=== PATIENT | female | born 1985 | race Caucasian/White ===

== ENCOUNTER 2017-03-14 15:24 | Emergency (ER) | payer BC, OTHER ==
[2017-03-14] MEDS ORDERED: RX INFO: IV CONTRAST WAS GIVEN 1 EACH MISC MISCELLANE PRN (15:38)
[2017-03-14] MEDS ORDERED: SODIUM CHLORIDE 0.9% 1,000 ML IV STA (15:38)
--- NOTE | 2017-03-14 15:45 | ED ---
General Adult HPI - General Chief complaint: Neuro Symptoms/Deficit Stated complaint: TIA Time Seen by Provider: 03/14/17 15:25 Source: patient, EMS, RN notes reviewed Mode of arrival: EMS Limitations: no limitations - History of Present Illness Initial comments: Patient is a pleasant 31-year-old female presenting to the emergency department with difficulty with focusing with her left eye. Patient states she removed from her computer to talk with a coworker around 1:15. Patient has had problems focusing with her left eye since that time. Patient has now developed a moderate headache. Patient did not have a headache earlier. Patient does have a history of similar headaches however not recently. Patient has not noticed any weakness of her arm or leg however EMS did have concern for left- sided weakness. - Related Data Previous Rx's Medication Instructions Recorded Meclizine [Antivert] 12.5 mg PO Q8HR PRN #10 tab 03/28/15 Allergies Allergy/AdvReac Type Severity Reaction Status Date / Time corn Allergy Unknown Verified 03/14/17 15:56 Milk Containing Products Allergy Unknown Verified 03/14/17 15:56 [Dairy] Review of Systems ROS Statement: Those systems with pertinent positive or pertinent negative responses have been documented in the HPI. ROS Other: All systems not noted in ROS Statement are negative. Constitutional: Denies: fever Eyes: Reports: vision change. Denies: eye pain ENT: Denies: ear pain Respiratory: Denies: cough Cardiovascular: Denies: chest pain Endocrine: Denies: fatigue Gastrointestinal: Denies: abdominal pain Genitourinary: Denies: dysuria Musculoskeletal: Denies: back pain Skin: Denies: rash Neurological: Reports: as per HPI Past Medical History Past Medical History: No Reported History Additional Past Medical History / Comment(s): vertigo History of Any Multi-Drug Resistant Organisms: None Reported Past Surgical History: Section, Tonsillectomy, Tubal Ligation Past Psychological History: No Psychological Hx Reported Smoking Status: Never smoker Past Alcohol Use History: None Reported Past Drug Use History: None Reported General Exam Limitations: no limitations General appearance: alert, in no apparent distress Head exam: Present: atraumatic Eye exam: Present: normal appearance, PERRL, EOMI. Absent: nystagmus Expanded Eyelids: Normal Inspection: Bilateral Pupils: Regular, Round: Bilateral Sclera/Conjunctival: Normal Inspection: Bilateral Posterior chamber: Normal Inspection: Bilateral ENT exam: Present: normal oropharynx Neck exam: Present: normal inspection Respiratory exam: Present: normal lung sounds bilaterally Cardiovascular Exam: Present: regular rate, normal rhythm GI/Abdominal exam: Present: soft. Absent: tenderness Extremities exam: Present: normal inspection Neurological exam: Present: alert, oriented X3, CN II-XII intact Expanded Patient oriented to: Present: person, place, time Speech: Present: fluid speech Cranial nerves: EOM's Intact: Normal, Facial Sensation: Normal Sensory exam: Upper Extremity Light Touch: Abnormal Left (Diminished on the left ), Lower Extremity Light Touch: Abnormal Left (Impression left) Motor strength exam: RUE: 5, LUE: 4, RLE: 5, LLE: 4 Eye Response: (4) open spontaneously Motor Response: (6) obeys commands Verbal Response: (5) oriented Psychiatric exam: Present: normal affect, normal mood Skin exam: Present: normal color Course Vital Signs 03/14/17 03/14/17 03/14/17 15:27 15:30 15:45 Temperature 98.4 F Pulse Rate 90 92 84 Respiratory 18 18 18 Rate Blood Pressure 159/98 159/98 163/87 O2 Sat by Pulse 100 98 98 Oximetry - Reevaluation(s) Reevaluation #1: 03/14/17 15:59 Patient reexamined and updated. CT reviewed. Neuro interventionalist does recommend TPA. Patient is fully updated on rest and benefits of TPA. Patient is specifically updated on real risk of or permanent disability resulting from TPA. Exclusion criteria reviewed. Patient is a candidate for TPA and patient doesn't want TPA done. TPA has been ordered. Neural interventional list would like patient transferred to [facility]. Medical Decision Making - Lab Data Result diagrams: 03/14/17 15:40 Lab Results 03/14/17 03/14/17 Range/Units 15:38 15:40 WBC 9.4 (3.8-10.6) k/uL RBC 4.59 (3.80-5.40) m/uL Hgb 12.6 (11.4-16.0) gm/dL Hct 38.4 (34.0-46.0) % MCV 83.7 (80.0-100.0) fL MCH 27.4 (25.0-35.0) pg MCHC 32.8 (31.0-37.0) g/dL RDW 12.2 (11.5-15.5) % Plt Count 344 (150-450) k/uL Neutrophils % 62 % Lymphocytes % 27 % Monocytes % 6 % Eosinophils % 3 % Basophils % 1 % Neutrophils # 5.8 (1.3-7.7) k/uL Lymphocytes # 2.6 (1.0-4.8) k/uL Monocytes # 0.5 (0-1.0) k/uL Eosinophils # 0.3 (0-0.7) k/uL Basophils # 0.1 (0-0.2) k/uL POC Glucose (mg/dL) 88 (75-99) mg/dL POC Glu Office Clinician ID Dejah Recinos - Radiology Data Radiology results: image reviewed (Computed tomography scan of brain shows no acute intercranial process.) Critical Care Time Critical Care Time: Yes Total Critical Care Time: 31 Disposition Clinical Impression: Cerebrovascular accident Disposition: OTHER INSTITUTION NOT DEFINED Referrals: Lary Rogers MD [Primary Care Provider] - 1-2 days Time of Disposition: 16:02 - Out of Hospital Transfer - Req. Specs Out of Hospital Transfer - Requested Specifics: Other Emergency Center
[2017-03-14 15:50] LABS: Glucose,Whole Blood 88 mg/dL (75-99)
[2017-03-14 15:53] LABS: Basophils # (A) 0.1 k/uL (0-0.2); Basophils % (A) 1 %; Eosinophils # (A) 0.3 k/uL (0-0.7); Eosinophils % (A) 3 %; HCT 38.4 % (34.0-46.0); HGB 12.6 gm/dL (11.4-16.0); Lymphocytes # (A) 2.6 k/uL (1.0-4.8); Lymphocytes % (A) 27 %; MCH 27.4 pg (25.0-35.0); MCHC 32.8 g/dL (31.0-37.0); MCV 83.7 fL (80.0-100.0); Mean Platelet Volume 7.1; Monocytes # (A) 0.5 k/uL (0-1.0); Monocytes % (A) 6 %; Neutrophils # (A) 5.8 k/uL (1.3-7.7); Neutrophils % (A) 62 %; Platelet Count 344 k/uL (150-450); RBC 4.59 m/uL (3.80-5.40); RDW 12.2 % (11.5-15.5); WBC 9.4 k/uL (3.8-10.6)
--- NOTE | 2017-03-14 15:53 | CT ---
EXAMINATION TYPE: CT brain wo con for TPA DATE OF EXAM: 03/14/2017 COMPARISON: NONE HISTORY: Patient complains of loss of left eye vision. CT DLP: 771.[address] of the brain was performed. The ventricles, basal cisterns and sulci overlying the cerebral convexities demonstrate a normal appe arance. There is no evidence for intracranial hemorrhage or sulcal effacement. No mass effects are seen. Osseous calvarium is intact. Mucus retention cyst left maxillary sinus. If symptoms persist consider MRI as clinically warranted. IMPRESSION: 1. No acute intracranial process is seen at this time.
[2017-03-14] MEDS ORDERED: ALTEPLASE 81 MG in EMPTY BAG 1 BAG IV STA (15:54)
[2017-03-14] MEDS ORDERED: ALTEPLASE BOLUS 9 MG in EMPTY SYRINGE 1 SYR IV STA (15:56)
--- NOTE | 2017-03-14 16:04 | XR ---
EXAMINATION TYPE: XR chest 1V portable DATE OF EXAM: 03/14/2017 COMPARISON: 08/24/2014 HISTORY: Chest pain TECHNIQUE: Single frontal view of the chest is obtained. FINDINGS: There is no focal air space opacity, pleural effusion, or pneumothorax seen. The cardiac silhouette size is within normal limits. The osseous structures are intact. IMPRESSION: 1. No acute process.
[2017-03-14 16:12] LABS: ALT 31 U/L (9-52); AST 18 U/L (14-36); Albumin 3.8 g/dL (3.5-5.0); Alkaline Phosphatase 69 U/L (38-126); Anion Gap 10 mmol/L; Blood Urea Nitrogen 10 mg/dL (7-17); Calcium 8.6 mg/dL (8.4-10.2); Carbon Dioxide 24 mmol/L (22-30); Chloride 104 mmol/L (98-107); Glucose 91 mg/dL (74-99); Potassium 4.1 mmol/L (3.5-5.1); Sodium 138 mmol/L (137-145); Total Bilirubin 0.2 mg/dL (0.2-1.3); Total Protein 6.8 g/dL (6.3-8.2)
[2017-03-14 16:14] LABS: Partial Thromboplastin Time 18.8 sec (22.0-30.0)
[2017-03-14 16:17] LABS: Creatine Kinase 62 U/L (30-135)
[2017-03-14 16:27] VITALS: RESP 20
[2017-03-14 16:29] LABS: Creatine Kinase MB 0.3 ng/mL (0.0-2.4); Troponin I <0.012 ng/mL (0.000-0.034)
--- NOTE | 2017-03-14 17:18 | CT ---
EXAMINATION TYPE: CT angio head neck DATE OF EXAM: 03/14/2017 HISTORY: Patient complains of loss of vision left eye. COMPARISON: NONE CT DLP: 548.4 mGycm. Automated Exposure Control for Dose Reduction was Utilized. TECHNIQUE: CTA scan of the neck is performed with IV Contrast, patient injected with 60 mL of Omnipa que 350, axial images are obtained, coronal and sagittal reformatted images are reviewed. Three-D rec onstructed images are created on an independent workstation and reviewed. FINDINGS: There is normal branching pattern of the great vessels on the aortic arch. There is bilateral vertebr al artery flow. There is arterial flow in the common internal and external carotid arteries bilateral ly. There is arterial flow in the vertebrobasilar artery system. There is arterial flow in the anterior m iddle and posterior cerebral arteries. I see no evidence of aneurysm or neovascularity. There is no m ass effect. There is no sign of stenosis. There is no sign of carotid dissection. There is normal contrast opacification of the venous sinuses.: CONCLUSION: Normal CT angiogram of the brain. Normal CT angiogram of the neck.
[2017-03-14 17:50] VITALS: BP 145/76; PULSE 88; TEMP 99
== END 2017-03-14 17:48 | disposition other institution (70) ==
LOC: EC 15:24
DX: I63.9 Cerebral infarction, unspecified (principal); R40.2142 Coma scale, eyes open, spontaneous, at arrival to emergency department; R40.2362 Coma scale, best motor response, obeys commands, at arrival to emergency department; R40.2252 Coma scale, best verbal response, oriented, at arrival to emergency department; Z91.011 Allergy to milk products; Z91.018 Allergy to other foods
CPT/HCPCS: 99291 ×2; 96365 ×2; 96366 ×2; 36415; 93005; 80053; 82550; 82553; 84484; 85025; 85610; 85730; 71010; 70496; 70450; 70498; J2997; Q9967

== ENCOUNTER → 2019-12-10 | Outpatient (CLI) | payer BC, OTHER ==
[2019-12-10 14:58] VITALS: BP 114/78; PULSE 70; RESP 16; TEMP 98.7; BMI 39.2
--- NOTE | 2019-12-10 20:22 | PN ---
PROGRESS NOTE DATE OF SERVICE: 12/10/2019. CHIEF COMPLAINT: GERD. INTERVAL HISTORY: The patient returns for re-evaluation. She is doing well with her weight loss. She has maintained her weight at 236. Preoperatively it was 327. Complaining of loose skin with skin excoriation. She has not been exercising recently, although she recently became unemployed and is planning to increase her exercise amount. The patient has dysphagia to bread but otherwise doing well. She takes antacids on an as- needed basis. Good liquid intake. Similar volume of oral intake to early postoperative period. PHYSICAL EXAMINATION: Abdomen is soft, nondistended, nontender. Mild skin irritation. PLAN: Check 2-year labs at this time. Continue antacid therapy. Increase exercise amount. Will have patient seen by Dietary today. Will refer to Plastics to discuss possible panniculectomy. Plan followup in 6 months. MMODL / IJN: [id number] /
== END | disposition home or self-care (01) ==
LOC: BARWHC3 14:27
PROVIDERS: ATTEND Surgery
DX: K21.9 Gastro-esophageal reflux disease without esophagitis (principal); Z71.3 Dietary counseling and surveillance
CPT/HCPCS: 97803; 99201

== ENCOUNTER → 2020-10-13 | Outpatient (CLI) | payer BC, OTHER ==
[2020-10-13 13:12] VITALS: BP 130/86; PULSE 90; RESP 16; TEMP 98.2; BMI 34.2
--- NOTE | 2020-10-13 17:28 | P.BASOAP ---
Subjective Progress Note Date: 10/13/20 Principal diagnosis: Morbid obesity Patient returns for evaluation. Last seen in November of last year. She has lost an additional 30 pounds since her last visit. She has lost approximately 120 pounds overall. Complains of a rash at times beneath her pannus. She has been exercising more. She is hoping to get down to a weight of 175 before pursuing abdominoplasty. Takes antiacids in the form of Pepcid rarely. No nausea or vomiting. She is due for annual blood work. Objective - Vital Signs Vital signs: Vital Signs Temp 98.2 F 10/13/20 13:10 Pulse 90 10/13/20 13:10 Resp 16 10/13/20 13:10 BP 130/86 10/13/20 13:10 Pulse Ox Intake & Output 10/12/20 10/13/20 10/13/20 18:59 06:59 18:59 Weight 93.44 kg - Exam Abdomen: Soft, nontender, nondistended Assessment/Plan (1) Morbid obesity Narrative/Plan: Patient doing well at this time. Continue dietary and exercise regimen. Check annual labs. Follow-up 6-12 months. Plan: Date: 10/13/20 Initial Weight: 148.325 kg Initial BMI: 54.3 Current Weight: 93.44 kg Current BMI: 34.2 Type of Surgery: Total Volume in Band: Previous Volume: Volume Removed: Volume Added: Band Size:
== END ==
LOC: BARWHC3 12:51
PROVIDERS: ATTEND Surgery
DX: E66.01 Morbid (severe) obesity due to excess calories (principal); Z68.34 Body mass index [BMI] 34.0-34.9, adult; Z91.011 Allergy to milk products; Z91.018 Allergy to other foods
CPT/HCPCS: 99211

== ENCOUNTER → 2020-11-25 | Outpatient (CLI) | payer OTHER ==
[2020-11-26 00:06] LABS: HCT 38.5 % (37.2-46.3); HGB 12.3 g/dL (12.0-15.0); MCH 28.4 pg (27.0-32.0); MCHC 31.9 g/dL (32.0-37.0); MCV 88.9 fL (80.0-97.0); Mean Platelet Volume 11.1 fL (9.5-12.2); Platelet Count 327 X 10*3/uL (140-440); RBC 4.33 X 10*6/uL (4.10-5.20); RDW 12.5 % (11.5-14.5); WBC 5.17 X 10*3/uL (4.50-10.00)
[2020-11-26 06:16] LABS: Folate, Serum 9.9 ng/mL
[2020-11-26 06:30] LABS: Albumin 4.3 g/dL (3.80-4.90); Albumin/Globulin Ratio 1.87 (1.60-3.17); Anion Gap 6.7 mmol/L (4.00-12.00); BUN/Creat Ratio 11.43 Ratio (12.00-20.00); Calcium 9.1 mg/dL (8.7-10.3); Carbon Dioxide 27.3 mmol/L (21.6-31.8); Globulin 2.3 g/dL (1.6-3.3); Potassium 3.9 mmol/L (3.5-5.5); Total Bilirubin 0.5 mg/dL (0.3-1.2); Total Protein 6.6 g/dL (6.2-8.2)
== END | disposition home or self-care (01) ==
LOC: LABWHC1 15:45
PROVIDERS: ATTEND Surgery
DX: E66.01 Morbid (severe) obesity due to excess calories (principal); K90.89 Other intestinal malabsorption; E55.9 Vitamin D deficiency, unspecified; Z98.84 Bariatric surgery status
CPT/HCPCS: 36415; 80053; 82306; 82607; 82746; 83540; 84425; 85027

== ENCOUNTER 2022-05-10 13:12 | Observation (INO) | payer OTHER ==
[2022-05-10] MEDS ORDERED: SODIUM CHLORIDE 0.9% 500 ML 500 ML IV STA (13:33)
[2022-05-10] MEDS ORDERED: dexAMETHasone 2 MG TAB PO STA (13:54)
[2022-05-10 13:56] LABS: Glucose,Whole Blood 92 mg/dL (70-110)
--- NOTE | 2022-05-10 13:59 | CT ---
EXAMINATION TYPE: CT brain wo con for TPA DATE OF EXAM: 05/10/2022 COMPARISON: 03/14/2017 HISTORY: Neuro deficit, acute, stroke suspected CT DLP: 1103.[address] of the brain was performed. The ventricles, basal cisterns and sulci overlying the cerebral convexities demonstrate a normal appe arance. Abnormal attenuation within the bilateral cerebellum medially in a PICA distribution. Correlate clini pennie. There is no evidence for intracranial hemorrhage or sulcal effacement. No mass effects are seen. Osseous calvarium is intact. If symptoms persist consider MRI as clinically warranted. IMPRESSION: 1. Abnormal attenuation within the bilateral cerebellum medially in a PICA distribution. Correlate c linically.
--- NOTE | 2022-05-10 13:59 | ED ---
General Adult HPI - General Chief complaint: Headache Stated complaint: rt sided vision issue, dizziness Source: patient, RN notes reviewed, old records reviewed Mode of arrival: ambulatory Limitations: no limitations - History of Present Illness Initial comments: This is a 37 year-old female who comes in stating she woke up this morning at 5:15 with a headache behind her right eye. Patient states went to work he started working and then she started having some wavy vision in the temporal region of the right eye. Patient states that continues and the headache continues well per patient denies any numbness weakness. Patient denies any speech disturbance. Patient denies any thought disturbance. Patient states this happened to her 2 years ago and they told her she probably had a TIA. Patient states her symptoms are more mild than it was 2 years ago because back then she had some numbness to the right side of her body. Patient states last night she did have a fever of 102. 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 - Related Data Home Medications Medication Instructions Recorded Confirmed Calcium Citrate 1,200 mg PO DAILY 12/10/19 10/16/20 Pnv No.95/Ferrous Fum/Folic AC 1 tab PO DAILY 12/10/19 10/16/20 [ Multivitamin Tablet] Allergies Allergy/AdvReac Type Severity Reaction Status Date / Time corn Allergy Unknown Verified 10/16/20 13:10 Milk Containing Products Allergy Unknown Verified 10/16/20 13:10 [Dairy] Review of Systems ROS Statement: Those systems with pertinent positive or pertinent negative responses have been documented in the HPI. ROS Other: All systems not noted in ROS Statement are negative. Past Medical History Past Medical History: CVA/TIA Additional Past Medical History / Comment(s): vertigo History of Any Multi-Drug Resistant Organisms: None Reported Past Surgical History: Bariatric Surgery, Section, Tonsillectomy, Tubal Ligation Additional Past Surgical History / Comment(s): sleeve gastrectomy 2018 [facility] Past Anesthesia/Blood Transfusion Reactions: No Reported Reaction Past Psychological History: No Psychological Hx Reported Smoking Status: Never smoker Past Alcohol Use History: None Reported Past Drug Use History: None Reported General Exam - General Exam Comments Initial Comments: GENERAL: Patient is well-developed and well-nourished. Patient is nontoxic and well- hydrated and is in no acute distress. ENT: Neck is soft and supple. No significant lymphadenopathy is noted. Oropharynx is clear. Moist mucous membranes. Neck has full range of motion without eliciting any pain. EYES: The sclera were anicteric and conjunctiva were pink and moist. Extraocular movements were intact and pupils were equal round and reactive to light. Eyelids were unremarkable. PULMONARY: Unlabored respirations. Good breath sounds bilaterally. No audible rales rhonchi or wheezing was noted. CARDIOVASCULAR: There is a regular rate and rhythm without any murmurs gallops or rubs. ABDOMEN: Soft and nontender with normal bowel sounds. SKIN: Skin is clear with no lesions or rashes and otherwise unremarkable. NEUROLOGIC: Patient is alert and oriented x3. Cranial nerves II through XII are grossly intact. Motor and sensory are also intact. Normal speech, volume and content. Symmetrical smile. Cerebellar exam grossly intact. Patient has visual field loss in the temporal region of the right eye and equates to an NIH of 1 MUSCULOSKELETAL: Normal extremities with adequate strength and full range of motion. LYMPHATICS: No significant lymphadenopathy is noted PSYCHIATRIC: Normal psychiatric evaluation. Limitations: no limitations Course Vital Signs 05/10/22 13:15 Temperature 98 F Pulse Rate 83 Respiratory 16 Rate Blood Pressure 115/74 O2 Sat by Pulse 100 Oximetry Medical Decision Making - Medical Decision Making I spoke with Dr. temple and he agreed that the patient did not need alteplase with an NIH of 1. EKG was interpreted by me that shows a sinus rhythm at 77 bpm MO interval is on a 73 QRS is 90 QT interval 360 QTC is 399. Patient's EKG shows no ST segment elevation or depression. CT of the brain was interpreted by me showed no acute abnormality. However radiology thought it might be some abnormal attenuation Dr. Benjamin was unimpressed but wanted an MRI. CT angiogram showed a possible cut off of the left M1 MCA segments but was not seen on the rapid angiography imaging. After the computed tomography scan and CTA were done I spoke with again and he wanted the patient to be admitted and have the neurologist see him and have an MRI done. I spoke with Dr. Bai and he agreed to admit the patient admitted the patient wrote admitting orders. I spoke to Dr. Paris the neurologist and he is aware of the patient. I went back into the room to reevaluate the patient she stated the vision was getting improve the headache was a little worse however. - Lab Data Result diagrams: 05/10/22 13:55 05/10/22 13:55 Lab Results 05/10/22 05/10/22 05/10/22 Range/Units 13:38 13:55 13:55 WBC 5.9 (3.8-10.6) k/uL RBC 4.23 (3.80-5.40) m/uL Hgb 12.0 (11.4-16.0) gm/dL Hct 35.5 (34.0-46.0) % MCV 84.0 (80.0-100.0) fL MCH 28.4 (25.0-35.0) pg MCHC 33.8 (31.0-37.0) g/dL RDW 12.2 (11.5-15.5) % Plt Count 293 (150-450) k/uL MPV 8.8 Neutrophils % 57 % Lymphocytes % 31 % Monocytes % 7 % Eosinophils % 2 % Basophils % 1 % Neutrophils # 3.4 (1.3-7.7) k/uL Lymphocytes # 1.8 (1.0-4.8) k/uL Monocytes # 0.4 (0-1.0) k/uL Eosinophils # 0.1 (0-0.7) k/uL Basophils # 0.1 (0-0.2) k/uL PT 10.1 (9.0-12.0) sec INR 0.9 (<1.2) APTT 20.5 L (22.0-30.0) sec Sodium (137-145) mmol/L Potassium (3.5-5.1) mmol/L Chloride (98-107) mmol/L Carbon Dioxide (22-30) mmol/L Anion Gap mmol/L BUN (7-17) mg/dL Creatinine (0.52-1.04) mg/dL Est GFR (CKD-EPI)AfAm (>60 ml/min/1.73 sqM) Est GFR (CKD-EPI)NonAf (>60 ml/min/1.73 sqM) Glucose (74-99) mg/dL POC Glucose (mg/dL) 92 (70-110) mg/dL POC Glu [employer] ID Tyrel, Asmara Calcium (8.4-10.2) mg/dL Total Bilirubin (0.2-1.3) mg/dL AST (14-36) U/L ALT (4-34) U/L Alkaline Phosphatase (38-126) U/L Troponin I (0.000-0.034) ng/mL Total Protein (6.3-8.2) g/dL Albumin (3.5-5.0) g/dL Influenza Type A (PCR) (Not Detectd) Influenza Type B (PCR) (Not Detectd) RSV (PCR) (Not Detectd) SARS-CoV-2 (PCR) (Not Detectd) 05/10/22 05/10/22 05/10/22 Range/Units 13:55 13:55 13:58 WBC (3.8-10.6) k/uL RBC (3.80-5.40) m/uL Hgb (11.4-16.0) gm/dL Hct (34.0-46.0) % MCV (80.0-100.0) fL MCH (25.0-35.0) pg MCHC (31.0-37.0) g/dL RDW (11.5-15.5) % Plt Count (150-450) k/uL MPV Neutrophils % % Lymphocytes % % Monocytes % % Eosinophils % % Basophils % % Neutrophils # (1.3-7.7) k/uL Lymphocytes # (1.0-4.8) k/uL Monocytes # (0-1.0) k/uL Eosinophils # (0-0.7) k/uL Basophils # (0-0.2) k/uL PT (9.0-12.0) sec INR (<1.2) APTT (22.0-30.0) sec Sodium 138 (137-145) mmol/L Potassium 3.8 (3.5-5.1) mmol/L Chloride 105 (98-107) mmol/L Carbon Dioxide 27 (22-30) mmol/L Anion Gap 6 mmol/L BUN 10 (7-17) mg/dL Creatinine 0.65 (0.52-1.04) mg/dL Est GFR (CKD-EPI)AfAm >90 (>60 ml/min/1.73 sqM) Est GFR (CKD-EPI)NonAf >90 (>60 ml/min/1.73 sqM) Glucose 91 (74-99) mg/dL POC Glucose (mg/dL) (70-110) mg/dL POC Glu [employer] ID Calcium 8.8 (8.4-10.2) mg/dL Total Bilirubin 0.4 (0.2-1.3) mg/dL AST 29 (14-36) U/L ALT 26 (4-34) U/L Alkaline Phosphatase 51 (38-126) U/L Troponin I <0.012 (0.000-0.034) ng/mL Total Protein 7.2 (6.3-8.2) g/dL Albumin 4.2 (3.5-5.0) g/dL Influenza Type A (PCR) Not Detected (Not Detectd) Influenza Type B (PCR) Not Detected (Not Detectd) RSV (PCR) Not Detected (Not Detectd) SARS-CoV-2 (PCR) Not Detected (Not Detectd) Disposition Clinical Impression: Headache, Visual disturbance Disposition: ADMITTED IP TO THIS HOSP Time of Disposition: 15:30
[2022-05-10 14:21] LABS: ALT 26 U/L (4-34); AST 29 U/L (14-36); African American GFR (CKD) >90 (>60 ml/min/1.73 sqM); Albumin 4.2 g/dL (3.5-5.0); Alkaline Phosphatase 51 U/L (38-126); Anion Gap 6 mmol/L; Blood Urea Nitrogen 10 mg/dL (7-17); Calcium 8.8 mg/dL (8.4-10.2); Carbon Dioxide 27 mmol/L (22-30); Chloride 105 mmol/L (98-107); Glucose 91 mg/dL (74-99); Non-African American GFR(CKD) >90 (>60 ml/min/1.73 sqM); Potassium 3.8 mmol/L (3.5-5.1); Sodium 138 mmol/L (137-145); Total Bilirubin 0.4 mg/dL (0.2-1.3); Total Protein 7.2 g/dL (6.3-8.2)
--- NOTE | 2022-05-10 14:28 | CT ---
EXAMINATION TYPE: CT angio head neck DATE OF EXAM: 05/10/2022 COMPARISON: There is poor visualization of the cerebellar vascular anatomy. HISTORY: Neuro deficit, acute, stroke suspected CT DLP: 607 mGycm CONTRAST: Performed with IV Contrast, patient injected with 65 mL of Isovue 370. Combination Contrast CTA cervical carotids and [place] CTA cervical carotids with 3-D recons truction Contrast CTA of the cervical carotids was performed 3-D reconstruction imaging obtained at a separate workstation. Right carotid system: Mild plaque is seen of the right common carotid artery. There is mild plaque a lso noted at the carotid bulb and proximal ICA. No significant diameter reduction. ECA is patent. Right vertebral artery appears unremarkable. Left carotid system: Mild plaque is seen of the left common carotid artery. There is mild plaque als o noted at the carotid bulb and proximal ICA. No significant diameter reduction. ECA is patent. Lef t vertebral artery appears unremarkable. IMPRESSION: 1. No significant diameter reduction to account for the patient's symptoms. CTA [place] with 3-D reconstruction Contrast CTA of the [place] was performed 3-D reconstruction imaging obtained at a separate workstation. Vertebrobasilar system as well as intracranial portions of the internal carotid arteries Are patent. On image 10 sequence 410 there is cut off of the left M1 MCA segment which could reflect vascular occ lusion.] On rapid angiography Imaging this does not persist however there is a decrease in vascular d ensity left hemisphere. There is poor visualization of the cerebellar vascular anatomy. I do not see evidence for sizable aneurysm or vascular malformation. Please note MRI provides greater sensitivity and specificity. Visualized brain appears grossly unremarkable. IMPRESSION: 1. On image 10 sequence 410 there is cut off of the left M1 MCA segment which could reflect vascular occlusion.] On rapid angiography Imaging this does not persist however there is a decrease in vascula r density left hemisphere. There is poor visualization of the cerebellar vascular anatomy. NASCET criteria was used in interpretation of this exam?
[2022-05-10 14:32] LABS: Basophils # (A) 0.1 k/uL (0-0.2); Basophils % (A) 1 %; Eosinophils # (A) 0.1 k/uL (0-0.7); Eosinophils % (A) 2 %; HCT 35.5 % (34.0-46.0); Lymphocytes # (A) 1.8 k/uL (1.0-4.8); Lymphocytes % (A) 31 %; MCH 28.4 pg (25.0-35.0); MCHC 33.8 g/dL (31.0-37.0); Mean Platelet Volume 8.8; Monocytes # (A) 0.4 k/uL (0-1.0); Monocytes % (A) 7 %; Neutrophils # (A) 3.4 k/uL (1.3-7.7); Neutrophils % (A) 57 %; Platelet Count 293 k/uL (150-450); RBC 4.23 m/uL (3.80-5.40); RDW 12.2 % (11.5-15.5); WBC 5.9 k/uL (3.8-10.6)
[2022-05-10 14:33] LABS: INR 0.9 (<1.2); Prothrombin Time 10.1 sec (9.0-12.0)
--- NOTE | 2022-05-10 14:53 | XR ---
EXAMINATION TYPE: XR chest 2V DATE OF EXAM: 05/10/2022 COMPARISON: NONE TECHNIQUE: PA and lateral views submitted. HISTORY: 03/14/2017 FINDINGS: The lungs are clear and there is no pneumothorax, pleural effusion, or focal pneumonia. Heart size normal. No overt failure. Nipple shadow overlying left lower lobe laterally. Hyperinflation suggestin g asthma or COPD. IMPRESSION: 1. No acute process.
[2022-05-10 14:55] LABS: Partial Thromboplastin Time 20.5 sec (22.0-30.0)
[2022-05-10] MEDS ORDERED: ASPIRIN 325 MG TAB PO STA (15:31)
--- NOTE | 2022-05-10 17:37 | P.CNNES ---
History of Present Illness Consult date: 05/10/22 Requesting physician: Clint Mcintyre Reason for Consult: headache, visual disturbance History of Present Illness: This is a 37-year-old woman with history of migraine, history of suspected stroke s/p IV tpa (6years ago and had speech difficulty and numbness) who presented emergency department because a headache and visual disturbance. 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 She stated that she's been having headache prior to that today and then the she noticed the stabbing pain in the right eye that was shooting the behind later today and she felt was an 8-10. Then close to 1 she noted that that she's having the fluttering the sensation upon looking at things and the blurry vision of the right eye. She did have some photophobia and phonophobia. She had nausea later today denies any vomiting. Denies any focal weakness, numbness. She feels her symptoms are improving today. She is denies being on any antiplatelet or any anticoagulation. She rarely socially drinks alcohol. Denies off any miscarriages. Denies of family history of the blood clots. Or any blood clots that she had. Other workup during this hospital visit consisted of: Initial vital signs is within normal limits. Patient's afebrile. CBC with differential and chemistry panel are unremarkable Influenza A/PE, RSV, SARS CoV-[address] of the head is reported as abnormal attenuation in the bilateral cerebellum immediately in the PICA distribution relate clinically. I personally reviewed the CT and there is no acute or subacute ischemic stroke and there is no mass effect. CT angiography of the head and neck was reported is on image 10 sequence there is a cut off of the left M1 MCA segment which could reflect vascular occlusion. On rapid angiography imaging this does not persist however there is a decrease in vascular density left hemisphere. There is poor visualization of the cerebellar vascular anatomy. Per the ED team, they spoke with the interventional neurologist (Dr. Leong) and he did not feel there is any cut off or vascular abnormality. He recommended patient to be admitted and to obtain MRI of the brain. Review of Systems Review of system: The 12 point system was reviewed and apparent positive and negative per HPI. Past Medical History Past Medical History: CVA/TIA Additional Past Medical History / Comment(s): vertigo History of Any Multi-Drug Resistant Organisms: None Reported Past Surgical History: Bariatric Surgery, Section, Tonsillectomy, Tubal Ligation Additional Past Surgical History / Comment(s): sleeve gastrectomy [facility] Past Anesthesia/Blood Transfusion Reactions: No Reported Reaction Past Psychological History: No Psychological Hx Reported Smoking Status: Never smoker Past Alcohol Use History: None Reported Past Drug Use History: None Reported Medications and Allergies Home Medications Medication Instructions Recorded Confirmed Type No Known Home Medications 05/10/22 05/10/22 History Allergies Allergy/AdvReac Type Severity Reaction Status Date / Time corn Allergy Unknown Verified 05/10/22 15:43 Milk Containing Products Allergy Unknown Verified 05/10/22 15:43 [Dairy] Physical Examination - Vital Signs Vital Signs: Vital Signs Temp Pulse Resp BP Pulse Ox 05/10/22 13:15 98 F 83 16 115/74 100 Intake and Output 05/10/22 05/10/22 05/10/22 06:59 14:59 22:59 Other: Weight 95.254 kg GENERAL: The patient is laying in bed and is not in acute distress. CHEST: The heart rate is regular rate rhythm. No murmurs to auscultation. LUNG: Clear to auscultation bilaterally no wheezing noted throughout. Not labored breathing. ABDOMEN/GI: Bowel sounds present in all 4 quadrants. No tenderness to palpation throughout. NEUROLOGICAL: Higher mental function: The patient is awake, alert, oriented to self, place and time. Patient is following commands. No aphasia and no neglect. Cranial nerves: The pupils are round, equal and reactive to light and accommodation. Visual rivera was hard to assess since at time felt she was seeing 2 upon showing one finger and seemed inconsistent. Extraocular movement is intact no nystagmus is noted. Facial sensation is normal to touch throughout. The facial strength is normal throughout. Hearing is normal bilaterally to hand rub. Tongue is midline and moved [id number] without any difficulty. No dysarthria is noted. Shoulder shrug is normal bilaterally. Motor: The strength is 5 over 5 throughout. Normal tone and bulk. Cerebellum: Normal finger to nose heel to hannah bilaterally. Sensation: Sensation is normal to touch throughout. Reflexes (right/left): 2+ throughout. Plantars are downgoing bilaterally. Results - Laboratory Findings CBC and BMP: 05/10/22 13:55 05/10/22 13:55 Abnormal Lab Findings: Abnormal Labs 05/10/22 13:55 APTT 20.5 L Assessment and Plan Assessment: Cephalgia with visual disturbance: Rule out acute to subacute ischemic stroke vs complicated migraine. On CTA it is reported as cut off of left MA MCA/decrease vascular density on left but interventional neurologist did not feel any cut off History of Migraine History of IV tpa (speech difficulty with numbness). She was not sure if this was truly stroke vs complicated migraine Plan: I ordered MRI Brain, MRA head and MRV head and 2 D echo. In the ED the patient was given ASA 325mg once then daily. I started on Lipitor 40mg qhs for now for now. Lipid panel is ordered and pending. I ordered TSH and HbA1c. Continue neuro checks. Placed on cardiac monitoring. PT, OT and CLIENT SERVICES DIRECTOR are consulted. Will defer the rest of medical management to primary team. For DVT prophylaxis: Started on suq heparin 5000U every 8 hours. The plan is discussed with patient. Thank you for the consultation. Time with Patient: Greater than 30
[2022-05-10] MEDS ORDERED: ATORVASTATIN 40 MG TAB PO SCH (21:00)
[2022-05-11] MEDS: HEPARIN SODIUM,PORCINE/PF 5,000 UNIT/0.5 ML SYRINGE SQ SCH ×3 (00:50→16:18)
[2022-05-11] MEDS ORDERED: ASPIRIN 325 MG TAB PO SCH (09:00)
[2022-05-11 09:30] VITALS: TEMP 98.1
[2022-05-11 11:22] LABS: Chol/HDL Ratio 2.41 Ratio; LDL Cholesterol,Calculated 93.5 mg/dL (0.0-131.0); VLDL Calculation 9.64 mg/dL (5.00-40.00)
--- NOTE | 2022-05-11 11:56 | FL ---
EXAMINATION TYPE: FL barium swallow w video DATE OF EXAM: 05/11/2022 MODIFIED SWALLOW / DEGLUTITION STUDY CLINICAL HISTORY: Dysphagia. TECHNIQUE: Deglutition study is performed utilizing thin liquid barium, honey and nectar thick liqui d barium, barium thick applesauce, and barium coated cracker. COMPARISON: None. FINDINGS: The oral and pharyngeal phases show satisfactory initiation and propagation with all modali ties tested. Normal mastication is seen with solid modalities tested. There is no evidence of penet ration or aspiration with any modality tested. No significant pharyngeal residue was appreciated. 37 seconds of fluoroscopy provided. 0 images submitted. IMPRESSION: Normal deglutition study. Please refer to speech therapist notes for further details if necessary.
--- NOTE | 2022-05-11 12:48 | MR ---
EXAMINATION TYPE: MR brain wo con DATE OF EXAM: 05/11/2022 COMPARISON: CT brain from yesterday. HISTORY: Visual disturbance, headache, dizziness. TECHNIQUE: Multiplanar, multisequence imaging of the brain and brainstem is performed without IV cont rast. FINDINGS: Diffusion weighted images demonstrate no evidence of a recent infarct or other diffusion abnormality. There is no extraaxial fluid collection or significant white matter signal abnormality. The ventricu lar system and cisternal spaces are normal in size and appearance. The brain volume is age appropria te. T2 star weighted images show no suspicious intraparenchymal blood products. Midline structures demonstrate normal morphology. The craniocervical junction appears within normal limits. Normal vascular flow voids are present. There is 1.6 cm mucous retention cyst or polyp in the inferior left maxillary sinus otherwise paranasal sinuses are clear. The globes are intact bilateral ly. IMPRESSION: No MRI evidence for a recent infarct. No significant findings seen to account for patient 's symptoms.
[2022-05-11] MEDS ORDERED: CLOPIDOGREL 75 MG TAB PO SCH (13:15)
--- NOTE | 2022-05-11 13:19 | CA ---
Transthoracic Echo Report Name: Hailey Sloan Age: 37 Gender: F : 1985 Exam Date: 05/11/2022 08:54 Exam Location: [place] [facility] Ht (in): 65 Wt (lb): 210 Ordering Physician: Chun Paris MD Attending/Referring Phys: [employer] Rec[employer]iter Shena Adams RDCS Procedure CPT: Indications: stroke Cardiac Hx: Technical Quality: Contrast 1: Total Dose (mL): Contrast 2: Total Dose (mL): MEASUREMENTS (Male / Female) Normal Values 2D ECHO LV Diastolic Diameter PLAX 3.7 cm 4.2 - 5.9 / 3.9 - 5.3 cm LV Systolic Diameter PLAX 2.7 cm IVS Diastolic Thickness 0.6 cm 0.6 - 1.0 / 0.6 - 0.9 cm LVPW Diastolic Thickness 1.2 cm 0.6 - 1.0 / 0.6 - 0.9 cm LV Relative Wall Thickness 0.5 RV Internal Dim ED PLAX 2.8 cm LA Systolic Diameter LX 3.3 cm 3.0 - 4.0 / 2.7 - 3.8 cm LA Volume 49.6 cm??? 18 - 58 / 22 - 52 cm??? M-MODE Aortic Root Diameter MM 2.9 cm LA Systolic Diameter MM 4.1 cm LA Ao Ratio MM 1.4 MV E Point Septal Separation 0.2 cm AV Cusp Separation MM 1.4 cm DOPPLER MV Area PHT 3.9 cm??? Mitral E Point Velocity 82.3 cm/s Mitral A Point Velocity 61.8 cm/s Mitral E to A Ratio 1.3 MV Deceleration Time 195.8 ms MV E' Velocity 11.3 cm/s Mitral E to MV E' Ratio 7.3 FINDINGS Left Ventricle Normal left ventricular size, wall thickness, systolic function with no obvious regional wall motion abnormalities. Left ventricular ejection fraction is estimated at 55 %. Right Ventricle The right ventricle is normal in size and function. Right ventricular systolic pressure within normal limits. Right Atrium The right atrium is normal in size. Left Atrium The left atrium is normal in size. Mitral Valve Structurally normal mitral valve without significant stenosis or prolapse. There is mild mitral regurgitation. Aortic Valve Structurally normal aortic valve without significant sclerosis or stenosis. There is no aortic regurgitation. Tricuspid Valve Structurally normal tricuspid valve without significant stenosis. Pulmonary artery systolic pressure is normal. Pulmonic Valve Structurally normal pulmonic valve without significant stenosis. There is no pulmonic regurgitation. Pericardium Normal pericardium without effusion. Aorta Normal aortic root dimension. CONCLUSIONS Normal left ventricular dimension and systolic function Previewed by: Dr. Buddy Wheeler MD (Electronically Signed) Final Date: 11 May 2022 13:18
--- NOTE | 2022-05-11 13:29 | MR ---
EXAMINATION TYPE: MR MRA/MRV head wo con DATE OF EXAM: 05/11/2022 COMPARISON: CTA head and neck images one day earlier HISTORY: Visual disturbance, headache, dizziness. TECHNIQUE: Time of flight images focusing on the [place] of [place] were performed without contrast.. M RV imaging of the brain. 2-D and 3-D postprocessing imaging is performed on independent workstation a nd reviewed. FINDINGS: Vertebral arteries are codominant and patent to the basilar junction. There is patent but s mall caliber bilateral posterior communicating arteries redemonstrated. No suspicious focal stenosis or aneurysm in the posterior circulation. There is patent anterior communicating artery. There is no significant focal stenosis or aneurysm in the anterior circulation. There is patent superior sagittal sinus. There is patent straight sinus. Patent internal cerebral vei n of [place] is seen.. There are patent bilateral transverse sinuses draining into the sagittal sinuses and internal jugular veins bilaterally. Inferior sagittal sinus not well seen but small caliber and patent. No suspicious findings at this level identified. IMPRESSION: 1. No focal stenosis or aneurysm at the level of [place] of [place]. 2. No convincing evidence for deep cerebral venous thrombosis.
--- NOTE | 2022-05-11 13:44 | P.PN ---
Subjective Progress Note Date: 05/11/22 The patient is seen at bedside and feels drastically better. Feel her vision has improved and headache is improving. Denies of any new neurological deficit. Objective - Vital Signs Vital signs: Vital Signs Temp 98.1 F 05/11/22 08:25 Pulse 67 05/11/22 08:25 Resp 17 05/11/22 08:25 BP 125/81 05/11/22 08:25 Pulse Ox 98 05/11/22 08:25 FiO2 Intake & Output 05/10/22 05/11/22 05/11/22 18:59 06:59 18:59 Weight 95.254 kg 95.254 kg Other: Voiding Method Toilet Toilet # Voids 1 - Exam GENERAL: The patient is laying in bed and is not in acute distress. NEUROLOGICAL: Higher mental function: The patient is awake, alert, oriented to self, place and time. Patient is following commands. No aphasia and no neglect. Cranial nerves: The pupils are round, equal and reactive to light and accommodation. Visual rivera are full to confrontation throughout. Extraocular movement is intact no nystagmus is noted. Facial sensation is normal to touch throughout. The facial strength is normal throughout. Hearing is normal bilaterally to hand rub. Tongue is midline and moved [id number] without any difficulty. No dysarthria is noted. Shoulder shrug is normal bilaterally. Motor: The strength is 5 over 5 throughout. Normal tone and bulk. Cerebellum: Normal finger to nose heel to hannah bilaterally. Sensation: Sensation is normal to touch throughout. Reflexes (right/left): 2+ throughout. Plantars are downgoing bilaterally. Other workup during this hospital visit consisted of: CBC with differential and chemistry panel are unremarkable Influenza A/PE, RSV, SARS CoV-2 are not detected. Lipid panel is triglyceride of 48, cholesterol is 176 LDL is 93. TSH is 3.28 Hemoglobin [address]c is 5.2 CT of the head is reported as abnormal attenuation in the bilateral cerebellum immediately in the PICA distribution relate clinically. I personally reviewed the CT and there is no acute or subacute ischemic stroke and there is no mass effect. CT angiography of the head and neck was reported is on image 10 sequence there is a cut off of the left M1 MCA segment which could reflect vascular occlusion. On rapid angiography imaging this does not persist however there is a decrease in vascular density left hemisphere. There is poor visualization of the cerebellar vascular anatomy. MRI Brain reported as no MRI evidence for recent infarct. No significant findings seen the to account for patient's symptoms. I personally reviewed the MRI and agree with the report. MRA and MRV was reported as no focal stenosis aneurysm at the level [place] of [place]. No convincing evidence for deep cerebral venous thrombosis. I personally reviewed that MRA of the head and I agree there is no stenosis or occlusion in the middle cerebral artery as mentioned in the CT angiography. 2-D echo was reported as normal left ventricular dye mentions solid function. Left atrium is normal in size. - Labs CBC & Chem 7: 05/10/22 13:55 05/10/22 13:55 Labs: Abnormal Lab Results - Last 24 Hours (Table) 05/10/22 05/11/22 Range/Units 13:55 06:29 APTT 20.5 L (22.0-30.0) sec HDL Cholesterol 72.90 H (40.00-60.00) mg/dL Assessment and Plan Assessment: Cephalgia with transient visual disturbance: Probable TIA. Cannot rule out complicated migraine. On CTA it is reported as cut off of left MA MCA/decrease vascular density on left but interventional neurologist did not feel any cut off but normal on MRA. History of Migraine History of IV tpa (speech difficulty with numbness). She was not sure if this was truly stroke vs complicated migraine Plan: On ASA 325mg and started Plavix 75mg daily (both new during this visit). Patient to be on dual antiplatelets for 21 days and after stop Plavix but continue ASA indefinitely. Decrease Lipitor to 20mg qhs for secondary stroke prophylaxis. If patient continues to have migraine would recommend further management as outpatient and consider Topamax 50mg 1 tab bid. Continue neuro checks. Placed on cardiac monitoring. PT, OT and PROGRAM MANAGER TRANSPORTATION are consulted. Will defer the rest of medical management to primary team. For DVT prophylaxis: Started on suq heparin 5000U every 8 hours. Recommend patient to follow-up with neurologist as outpatient within 1-2 weeks. There is no additional neurological work-up. She is clear for discharge. The plan is discussed with patient. Time with Patient: Less than 30
[2022-05-11 16:41] VITALS: BP 117/79; PULSE 83; RESP 18
[2022-05-11] MEDS ORDERED: ATORVASTATIN 20 MG TAB PO SCH (21:00)
--- NOTE | 2022-05-12 23:35 | DS ---
DISCHARGE SUMMARY CHIEF COMPLAINT: Headache with visual changes in the right eye and hypoesthesias in the right arm and leg. HISTORY OF PRESENT ILLNESS AND PHYSICAL EXAMINATION: Details of this lady's history and physical can be found in the initial workup. LABORATORY STUDIES: While she was in the hospital, she had laboratory studies, details of which can be found in the laboratory section of her chart. COURSE IN THE HOSPITAL: After admission, she was placed on bedrest and started on intravenous fluids and frequent monitoring of her neurologic status and vital signs. She is seen in consultation by Neurology. There was a question as to whether or not there was an abnormality in the small-vessel in the base of the brain. It was decided that she should be safely placed on Plavix and aspirin. She is doing well and felt she could be discharged. She will follow up in the hospital and she will probably require further workup. FINAL DIAGNOSES: 1. Possible transient ischemic attack. 2. Possible migraine syndrome. OPERATIONS: None. CONSULTATIONS: Neurology. She is improved. MMODNury / JENIFERN: [id number] /
--- NOTE | 2022-05-13 01:50 | HP ---
HISTORY AND PHYSICAL CHIEF COMPLAINT: Headache with visual disturbance. 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 She does not have a history of migraines. She noticed some right-sided hypoesthesias and weakness as well. When she came to the emergency room, she was admitted as a possible TIA. Her history certainly was compatible with migraine syndrome as well. She is otherwise healthy. REVIEW OF SYSTEMS: She was completely normal, otherwise. She has had no fever, chills, other neurologic episodes or symptoms, etc. Past medical history, family history, personal and social histories were all otherwise unremarkable. She is not on any medication and not allergic to any. She has had a T and A, and a gastric sleeve and 3 C sections. She does not smoke or drink. PHYSICAL EXAMINATION: VITAL SIGNS: Blood pressure is 129/80 with a pulse of 62, respirations of 12, and she is afebrile. GENERAL: She appeared well developed, well nourished, no acute distress. SKIN: Color is normal skin is warm, dry. LYMPH NODES: Not enlarged. HEAD, EARS, EYES, NOSE, MOUTH AND THROAT: Normal. NECK: Neck veins are not distended. Thyroid was not enlarged. CHEST: Clear. CARDIAC: Normal sinus rhythm with no murmurs or extra sounds. ABDOMEN: Soft and nontender without any visceromegaly, masses. Bowel sounds are present. EXTREMITIES: Normal. NEUROLOGICAL: She is intact. Pupils equally round and gaze is conjugate. Sensorimotor exam is normal. ASSESSMENT: She is admitted to the hospital with diagnoses of: 1. Headache associated with visual change in the right eye and hypoesthesias in the right arm and leg. PLAN: 1. Neurology consult. 2. CT of the brain. 3. MRI and MRA of the neck and brain. MMODL / IJN: [id number] /
== END 2022-05-11 18:36 | disposition home or self-care (01) ==
LOC: EC 13:12 → 3SCARD 15:31
PROVIDERS: ADMIT Family Medicine; ATTEND Family Medicine
DX: H53.9 Unspecified visual disturbance (principal); R51.9 Headache, unspecified; R42 Dizziness and giddiness; R20.1 Hypoesthesia of skin; Z20.822 Contact with and (suspected) exposure to COVID-19; Z91.011 Allergy to milk products; Z91.018 Allergy to other foods; Z86.73 Personal history of transient ischemic attack (TIA), and cerebral infarction without residual deficits; Z86.69 Personal history of other diseases of the nervous system and sense organs; Z98.84 Bariatric surgery status; Z98.891 History of uterine scar from previous surgery; Z98.51 Tubal ligation status; Z98.890 Other specified postprocedural states
CPT/HCPCS: 96372; 99285; 36415; 93005; 93306; 97161; 97165; 92610; 92611; 80061; 80053; 84443; 84484; 85025; 85610; 85730; 83036; 87636; 74230; 71046; 70496; 70450; 70498; 70551; 70544; G0378; J8540; Q9967; J1644

== ENCOUNTER 2022-12-15 07:26 | Emergency (ER) | payer OTHER ==
[2022-12-15 07:32] VITALS: TEMP 98.1
[2022-12-15] MEDS ORDERED: diazePAM 5 MG TAB PO STA (07:57)
[2022-12-15] MEDS ORDERED: SODIUM CHLORIDE 0.9% 1,000 ML IV STA (07:57)
[2022-12-15] MEDS ORDERED: KETOROLAC 15 MG/ML 1 ML VIAL IVP STA (07:57)
[2022-12-15] MEDS ORDERED: LIDOCAINE 5% PATCH TOPICAL STA (07:58)
--- NOTE | 2022-12-15 08:05 | ED ---
General Adult HPI - General Chief complaint: Extremity Injury, Upper Stated complaint: L Arm Numbness,SOB Time Seen by Provider: 12/15/22 07:48 Source: patient, RN notes reviewed, old records reviewed Mode of arrival: wheelchair Limitations: no limitations - History of Present Illness Initial comments: Patient is a 37-year-old female with past medical history remarkable for TIAs, migraines who presents emergency Department with left-sided shoulder pain. Patient states she was leaving the drive-through after getting coffee when she began expressing a felt like a tightening sensation over the posterior aspect of her left shoulder. States dyspnea the shoulder blade. The pain seems to radiate around her left side along the ribs. It is worse with movements of the torso as well as her left shoulder. Patient does have a cardiac history that runs in the family but no significant history for herself. Patient became concerned and presents for further evaluation. Went pain on deep inspiration. Complains with pain with movement. No obvious traumatic injury. Denies any diaphoresis. Denies any headache. Denies any numbness. Has no other acute complaints at this time. Presents for further evaluation at this time.Patient does endorse having a tingling sensation in her left hand that was worse earlier and is nearly resolved. - Related Data Previous Rx's Medication Instructions Recorded Aspirin 325 mg PO DAILY #30 tab 05/11/22 Clopidogrel [Plavix] 75 mg PO DAILY #30 tab 05/11/22 Cyclobenzaprine [Flexeril] 5 mg PO TID PRN 5 Days #15 tablet 12/15/22 Allergies Allergy/AdvReac Type Severity Reaction Status Date / Time corn Allergy Unknown Verified 12/15/22 07:32 Milk Containing Products Allergy Unknown Verified 12/15/22 07:32 [Dairy] Review of Systems ROS Statement: Those systems with pertinent positive or pertinent negative responses have been documented in the HPI. Review of Systems: CONST: Denies fever EYES: Denies blurry vision ENT: Denies nasal congestion C/V: Denies Chest pain RESP: Denies shortness of breath GI: Denies abdominal pain : Denies dysuria SKIN: Denies rash. MSK: Endorses left shoulder pain NEURO: Denies headache ROS Other: All systems not noted in ROS Statement are negative. Past Medical History Past Medical History: CVA/TIA Additional Past Medical History / Comment(s): vertigo History of Any Multi-Drug Resistant Organisms: None Reported Past Surgical History: Bariatric Surgery, Section, Tonsillectomy, Tubal Ligation Additional Past Surgical History / Comment(s): sleeve gastrectomy 2018 [facility] Past Anesthesia/Blood Transfusion Reactions: No Reported Reaction Past Psychological History: No Psychological Hx Reported Smoking Status: Never smoker Past Alcohol Use History: None Reported Past Drug Use History: None Reported General Exam - General Exam Comments Initial Comments: General: Appears in mild acute distress. HEAD: Normal with no signs of head trauma. EYES: PERRLA, EOMI, conjunctiva normal, no discharge. ENT: Hearing grossly intact, normal oropharynx. RESPIRATORY: Clear breath sounds bilaterally. No wheezes, rales, or rhonchi. C/V: Regular rate and rhythm. S1 and S2 auscultated, no edema, peripheral pulses 2+ and intact throughout ABD: Abd is soft, nontender, nondistended EXT: Decreased range of motion of the left shoulder secondary to pain. No obvious deformity. On passive range of motion, patient is pain in her left shoulder blade with any movements approaching 90 or higher. Patient is tender to palpation over the left trapezius muscle near the scapula with radiation along the intercostal space towards inferior left ribs up to the anterior axillary line. SKIN: No rashes or lesions observed on exposed skin. NEURO: Alert and oriented x 4. Cranial nerves II-XII intact. No focal sensory or strength deficits. Limitations: no limitations Course Vital Signs 12/15/22 12/15/22 12/15/22 07:27 08:41 09:58 Temperature 98.1 F 98.1 F Pulse Rate 82 68 76 Respiratory 20 16 16 Rate Blood Pressure 129/90 121/70 124/86 O2 Sat by Pulse 100 100 100 Oximetry Medical Decision Making - Medical Decision Making Was pt. sent in by a medical professional or institution (, PA, [employer], urgent care, hospital, or [place] [facility] facility...) When possible be specific @ -No Did you speak to anyone other than the patient for history (EMS, parent, family, police, friend...)? What history was obtained from this source @ -No Did you review nursing and triage notes (agree or disagree)? Why? @ -I reviewed and agree with nursing and triage notes Were old charts reviewed (outside hosp., previous admission, EMS record, old EKG, old radiological studies, urgent care reports/EKG's, [place] [facility] facility records)? Report findings @ -No old charts were reviewed Differential Diagnosis (chest pain, altered mental status, abdominal pain women, abdominal pain men, vaginal bleeding, weakness, fever, dyspnea, syncope, headache, dizziness, GI bleed, back pain, seizure, CVA, palpatations, mental health, musculoskeletal)? @ -Differential Musculoskeletal Muscular strain, contusion, ligament sprain, fracture, arthritis, septic arthritis, bursitis, cellulitis, muscle spasm, nerve compression, DVT, arterial occlusion, herpes zoster, electrolyte abnormality, tumor.... This is not meant to be in all inclusive list Differential Chest Pain: Stable Angina, Unstable Angina, STEMI, NSTEMI Aortic Dissection, Pneumothorax, Musculoskeletal, Esophageal Spasm GERD, Cholecystitis, Pancreatitis, Zoster, this is not meant to be an all-inclusive list. EKG interpreted by me (3pts min.). @ -As above X-rays interpreted by me (1pt min.). @ -Chest x-ray shows no obvious acute cardio primary process. Patient's left shoulder x-ray does show a calcification in the tendon which could represent calcific tendinitis of the rotator cuff. No other obvious process seen. CT interpreted by me (1pt min.). @ -None done U/S interpreted by me (1pt. min.). @ -None done What testing was considered but not performed or refused? (CT, X-rays, U/S, labs)? Why? @ -None What meds were considered but not given or refused? Why? @ -None Did you discuss the management of the patient with other professionals (professionals i.e. , PA, [employer]ER, lab, RT, psych nurse, geriatric social work professor, warehouse analyst, teacher, railway patrol officer, case finisher)? Give summary @ -No Was smoking cessation discussed for >3mins.? @ -No Was critical care preformed (if so, how long)? @ -No Were there social determinants of health that impacted care today? How? (Homelessness, low income, unemployed, alcoholism, drug addiction, transportation, low edu. Level, literacy, decrease access to med. care, senior living, rehab)? @ -No Was there de-escalation of care discussed even if they declined (Discuss DNR or withdrawal of care, Hospice)? DNR status @ -No What co-morbidities impacted this encounter? (DM, HTN, Smoking, COPD, CAD, Cancer, CVA, ARF, Chemo, Hep., AIDS, mental health diagnosis, sleep apnea, morbid obesity)? @ -None Was patient admitted / discharged? Hospital course, mention meds given and route, prescriptions, significant lab abnormalities, going to OR and other pertinent info. @ -Based on the patient's presentation and physical exam, she presents with what she describes as a typical chest pain but actually seems to be more of a muscle strain or spasm likely from the trapezius muscle with radiation into the intercostal muscles. We will obtain a cardiopulmonary labs however as well as treat the patient with a lidocaine patch, IV Toradol, Valium. Patient was in agreement this plan. Vital signs within acceptable limits. EKG shows no signs of acute ischemia.Imaging is unremarkable other than possible calcific tendinitis the left rotator cuff. Labs are remarkable for a d-dimer within normal limits. Troponin is undetectable. Remainder of the labs are within normal limits. I gave the patient on her results. She is having a significant amount of pain relief. She feels improved. I believe it is safer to be discharged home. We discussed that she likely a muscle spasm and strain. Recommended rest. She'll be given a work note as well as a prescription for muscle relaxers. Strict return precautions discussed. She was in agreement this plan. I will provide the patient with a prescription for Flexeril. I instructed the patient to follow up with their PCP in the next 1-3 days. I explained that the patient should return to the emergency department if they experience any worsening symptoms. Strict return precautions were discussed with the patient. The patient expressed understanding of these instructions. I answered all questions that the patient had. The patient was discharged home in good condition with their prescriptions and follow up information. Undiagnosed new problem with uncertain prognosis? @ -No Drug Therapy requiring intensive monitoring for toxicity (Heparin, Nitro, Insulin, Cardizem)? @ -No Were any procedures done? @ -No Diagnosis/symptom? @ -Muscle spasm, muscle strain Acute, or Chronic, or Acute on Chronic? @ -Acute Uncomplicated (without systemic symptoms) or Complicated (systemic symptoms)? @ -Complicated Side effects of treatment? @ -none Exacerbation, Progression, or Severe Exacerbation] @ -no Poses a threat to life or bodily function? @ -no - Lab Data Result diagrams: 12/15/22 08:04 12/15/22 08:04 Lab Results 12/15/22 12/15/22 12/15/22 Range/Units 08:04 08:04 08:04 WBC 4.0 (3.8-10.6) k/uL RBC 4.12 (3.80-5.40) m/uL Hgb 11.1 L (11.4-16.0) gm/dL Hct 34.2 (34.0-46.0) % MCV 82.8 (80.0-100.0) fL MCH 26.9 (25.0-35.0) pg MCHC 32.4 (31.0-37.0) g/dL RDW 13.6 (11.5-15.5) % Plt Count 249 (150-450) k/uL MPV 7.8 Neutrophils % 48 % Lymphocytes % 35 % Monocytes % 10 % Eosinophils % 4 % Basophils % 1 % Neutrophils # 1.9 (1.3-7.7) k/uL Lymphocytes # 1.4 (1.0-4.8) k/uL Monocytes # 0.4 (0-1.0) k/uL Eosinophils # 0.2 (0-0.7) k/uL Basophils # 0.0 (0-0.2) k/uL Hypochromasia Slight PT 10.3 (9.0-12.0) sec INR 1.0 (<1.2) APTT 23.0 (22.0-30.0) sec D-Dimer 0.26 (<0.60) mg/L FEU Sodium 137 (137-145) mmol/L Potassium 4.2 (3.5-5.1) mmol/L Chloride 106 (98-107) mmol/L Carbon Dioxide 23 (22-30) mmol/L Anion Gap 8 mmol/L BUN 11 (7-17) mg/dL Creatinine 0.56 (0.52-1.04) mg/dL Est GFR (CKD-EPI)AfAm >90 (>60 ml/min/1.73 sqM) Est GFR (CKD-EPI)NonAf >90 (>60 ml/min/1.73 sqM) Glucose 78 (74-99) mg/dL Calcium 8.4 (8.4-10.2) mg/dL Magnesium 1.8 (1.6-2.3) mg/dL Total Bilirubin 0.7 (0.2-1.3) mg/dL AST 39 H (14-36) U/L ALT 31 (4-34) U/L Alkaline Phosphatase 46 (38-126) U/L Troponin I (0.000-0.034) ng/mL Total Protein 6.7 (6.3-8.2) g/dL Albumin 3.7 (3.5-5.0) g/dL 12/15/22 Range/Units 08:04 WBC (3.8-10.6) k/uL RBC (3.80-5.40) m/uL Hgb (11.4-16.0) gm/dL Hct (34.0-46.0) % MCV (80.0-100.0) fL MCH (25.0-35.0) pg MCHC (31.0-37.0) g/dL RDW (11.5-15.5) % Plt Count (150-450) k/uL MPV Neutrophils % % Lymphocytes % % Monocytes % % Eosinophils % % Basophils % % Neutrophils # (1.3-7.7) k/uL Lymphocytes # (1.0-4.8) k/uL Monocytes # (0-1.0) k/uL Eosinophils # (0-0.7) k/uL Basophils # (0-0.2) k/uL Hypochromasia PT (9.0-12.0) sec INR (<1.2) APTT (22.0-30.0) sec D-Dimer (<0.60) mg/L FEU Sodium (137-145) mmol/L Potassium (3.5-5.1) mmol/L Chloride (98-107) mmol/L Carbon Dioxide (22-30) mmol/L Anion Gap mmol/L BUN (7-17) mg/dL Creatinine (0.52-1.04) mg/dL Est GFR (CKD-EPI)AfAm (>60 ml/min/1.73 sqM) Est GFR (CKD-EPI)NonAf (>60 ml/min/1.73 sqM) Glucose (74-99) mg/dL Calcium (8.4-10.2) mg/dL Magnesium (1.6-2.3) mg/dL Total Bilirubin (0.2-1.3) mg/dL AST (14-36) U/L ALT (4-34) U/L Alkaline Phosphatase (38-126) U/L Troponin I <0.012 (0.000-0.034) ng/mL Total Protein (6.3-8.2) g/dL Albumin (3.5-5.0) g/dL - EKG Data -: EKG Interpreted by Me EKG Comments: 12-lead Electrocardiogram Interpretation Note EKG was reviewed and interpreted by myself. 12-lead ECG performed at 0743 is interpreted by me as revealing normal sinus rhythm at a rate of 75 beats per minute. Right axis deviation. MS interval is 161 ms, QRS duration is 92 ms, QTc is 397 ms.. There were no ST or T wave abnormalities to suggest myocardial ischemia or injury. R wave progression across the precordium was satisfactory. By my interpretation this EKG is non-diagnostic for acute ischemia. Disposition Clinical Impression: Muscle spasm, Muscle strain Disposition: HOME SELF-CARE Condition: Good Instructions (If sedation given, give patient instructions): Muscle Spasm (ED) Prescriptions: Cyclobenzaprine [Flexeril] 5 mg PO TID PRN 5 Days #15 tablet PRN Reason: Pain Is patient prescribed a controlled substance at d/c from ED?: No Referrals: Zev Ramirez MD [Primary Care Provider] - 1-2 days Time of Disposition: 09:36
[2022-12-15 08:13] LABS: Basophils % (A) 1 %; Eosinophils # (A) 0.2 k/uL (0-0.7); Eosinophils % (A) 4 %; HCT 34.2 % (34.0-46.0); HGB 11.1 gm/dL (11.4-16.0); Hypochromasia Slight; Lymphocytes # (A) 1.4 k/uL (1.0-4.8); Lymphocytes % (A) 35 %; MCH 26.9 pg (25.0-35.0); MCHC 32.4 g/dL (31.0-37.0); MCV 82.8 fL (80.0-100.0); Mean Platelet Volume 7.8; Monocytes # (A) 0.4 k/uL (0-1.0); Monocytes % (A) 10 %; Neutrophils # (A) 1.9 k/uL (1.3-7.7); Neutrophils % (A) 48 %; Platelet Count 249 k/uL (150-450); RBC 4.12 m/uL (3.80-5.40); RDW 13.6 % (11.5-15.5)
[2022-12-15 08:36] LABS: ALT 31 U/L (4-34); AST 39 U/L (14-36); African American GFR (CKD) >90 (>60 ml/min/1.73 sqM); Albumin 3.7 g/dL (3.5-5.0); Alkaline Phosphatase 46 U/L (38-126); Anion Gap 8 mmol/L; Blood Urea Nitrogen 11 mg/dL (7-17); Calcium 8.4 mg/dL (8.4-10.2); Carbon Dioxide 23 mmol/L (22-30); Chloride 106 mmol/L (98-107); Glucose 78 mg/dL (74-99); Magnesium 1.8 mg/dL (1.6-2.3); Non-African American GFR(CKD) >90 (>60 ml/min/1.73 sqM); Potassium 4.2 mmol/L (3.5-5.1); Sodium 137 mmol/L (137-145); Total Bilirubin 0.7 mg/dL (0.2-1.3); Total Protein 6.7 g/dL (6.3-8.2)
[2022-12-15 08:41] LABS: Prothrombin Time 10.3 sec (9.0-12.0)
[2022-12-15 08:45] VITALS: RESP 16
--- NOTE | 2022-12-15 08:48 | XR ---
EXAMINATION TYPE: XR chest 2V, XR shoulder complete 3 views LT DATE OF EXAM: 12/15/2022 COMPARISON: Chest 05/10/2022 HISTORY: 37-year-old female with chest pain, shortness of breath, left arm pain, and decreased range of motion FINDINGS: Chest: The cardiomediastinal silhouette, aorta, and pulmonary vasculature are within normal limits. L ungs and pleural spaces are clear. Left shoulder: AC joint appears intact. Subacromial space is preserved. There is a punctate 2 mm calc ific density along the posterior aspect of the greater tuberosity on the internal rotation view. Suba cromial space is preserved. No acute fracture, subluxation, dislocation seen. IMPRESSION: 1. Chest: No acute cardiopulmonary process. 2. Left shoulder: Tiny 2 mm calcification along the posterior aspect of the greater tuberosity on the internal rotation view. Findings are nonspecific. Correlate with symptoms to exclude potential calci fic tendinitis of the rotator cuff. Otherwise, no acute osseous abnormality seen.
[2022-12-15 09:59] VITALS: BP 124/86; PULSE 76
== END 2022-12-15 09:58 | disposition home or self-care (01) ==
LOC: EC 07:26
DX: S46.912A Strain of unspecified muscle, fascia and tendon at shoulder and upper arm level, left arm, initial encounter (principal); Z91.018 Allergy to other foods; Z91.011 Allergy to milk products; Z86.73 Personal history of transient ischemic attack (TIA), and cerebral infarction without residual deficits; X58.XXXA Exposure to other specified factors, initial encounter
CPT/HCPCS: 36415; 93005; 85379; 80053; 83735; 84484; 85025; 85610; 85730; 73030; 71046; 99284; 96374; 96361; J1885

== ENCOUNTER → 2023-06-08 | Outpatient (CLI) | payer OTHER ==
--- NOTE | 2023-06-08 12:22 | CT ---
EXAMINATION TYPE: CT abdomen pelvis w con DATE OF EXAM: 06/08/2023 HISTORY: Right upper quadrant pain CT DLP: 1613mGycm Automated Exposure Control for Dose Reduction was Utilized. CONTRAST: CT scan of the abdomen and pelvis is performed with oral and with IV Contrast, patient injected with 100 ml mL of Isovue 300. COMPARISON: None. FINDINGS: LUNG BASES: No significant abnormality is appreciated. LIVER/GB: No CT dense intraluminal gallstones. Gallbladder shows no suspicious surrounding ill-define d fluid or fat stranding. PANCREAS: No significant abnormality is seen. SPLEEN: No significant abnormality is seen. ADRENALS: No significant abnormality is seen. KIDNEYS: No significant abnormality is seen. BOWEL: Oral contrast reaches the level of the cecum. No abnormal small or large bowel dilatation. UTERUS/ADNEXA: Anteverted uterus projects right of midline. Small to moderate amount of free fluid in the pelvic cul-de-sac is seen. There is a ring-enhancing lesion in the left pelvis axial image 67. F indings suspicious for corpus luteal cyst from recent lobulation. LYMPH NODES: No greater than 1cm abdominal or pelvic lymph nodes are appreciated. OSSEOUS STRUCTURES: No significant abnormality is seen. OTHER: No significant additional abnormality is seen. IMPRESSION: No significant acute finding is seen to account for patient's clinical symptoms of right upper quadrant pain.
== END | disposition home or self-care (01) ==
LOC: RADCTMAIN 09:56
PROVIDERS: ATTEND Family Medicine
DX: R10.11 Right upper quadrant pain (principal); R10.31 Right lower quadrant pain; R50.9 Fever, unspecified; Z90.3 Acquired absence of stomach [part of]
CPT/HCPCS: 74177; Q9967

== ENCOUNTER → 2023-06-30 | Outpatient (CLI) | payer OTHER ==
--- NOTE | 2023-06-30 09:53 | US ---
EXAMINATION TYPE: US transvaginal DATE OF EXAM: 06/30/2023 COMPARISON: NONE CLINICAL INDICATION: Female, 38 years old with history of R10.2 PELVIC AND PERINEAL PAIN N93.9 ABNORM N83.10; pelvic pain, left cyst seen on CT TECHNIQUE: TV. Transvaginal sonographic images Date of LMP: last week in May EXAM MEASUREMENTS: Uterus: 9.9 x 5.0 x 4.6 cm Endometrial Stripe: 0.7 cm Right Ovary: 2.3 x 1.5 x 1.7 cm Left Ovary: 3.8 x 3.4 x 2.9 cm 1. Uterus: Anteverted 1.4 x 1.6 x 1.6cm probable anterior right fundal fibroid, fluid within cervi x with internal debris 2. Endometrium: wnl 3. Right Ovary: small follicles seen 4. Left Ovary: 2.4 x 2.7 x 2.4cm 5. Bilateral Adnexa: wnl 6. Posterior cul-de-sac: wnl IMPRESSION: Uterine leiomyomatous change.
== END | disposition home or self-care (01) ==
LOC: RADUSWWP 09:09
PROVIDERS: ATTEND Family Medicine
DX: N93.9 Abnormal uterine and vaginal bleeding, unspecified (principal); N83.10 Corpus luteum cyst of ovary, unspecified side; R87.629 Unspecified abnormal cytological findings in specimens from vagina; R10.2 Pelvic and perineal pain
CPT/HCPCS: 76830

== ENCOUNTER 2023-12-06 17:40 | Emergency (ER) | payer OTHER ==
--- NOTE | 2023-12-06 20:00 | US ---
EXAMINATION TYPE: US transvaginal DATE OF EXAM: 12/06/2023 COMPARISON: 06/30/2023 CLINICAL INDICATION: Female, 38 years old with history of heavy vag bleed, llq pain; Patient states h eavy vag bleeding and llq pain. Currently on period. Hx 3 c sections TECHNIQUE: Transvaginal (TV). . Transvaginal sonographic images were medically necessary to better assess the following anatomy: Ovaries Date of LMP: 12/04/2023 EXAM MEASUREMENTS: Uterus: 9.1 x 4.4 x 5.1 cm Endometrial Stripe: 0.5 cm Right Ovary: 3.0 x 1.7 x 2.0 cm Left Ovary: 2.6 x 2.0 x 2.6 cm 1. Uterus: Anteverted The myometrium appears slightly heterogeneous. There is a 1.5 x 1.5 x 1.3cm hypoechoic area seen within the right side of the uterus. There is also a 1.5 x 0.5 x 1.1cm anechoic area seen within the cervix 2. Endometrium: Visualized portion appears WNL 3. Right Ovary: Follicular changes noted, there is a 0.8 x 0.7 x 0.8cm exophytic probable dominant f ollicle. 4. Left Ovary: Partially obscured by bowel. There is a 1.1 x 1.1 x 1.4cm anechoic area seen, Spectral, color and waveform doppler imaging shows good arterial and venous flow within the ovaries ; there is no evidence for ovarian torsion. 5. Bilateral Adnexa: Obscured by overlying bowel gas 6. Posterior cul-de-sac: WNL IMPRESSION: 1. Heterogenous myometrium suggestive of fibroid change. 2. Endometrium within normal limits for thickness. 3. Follicles bilaterally. 4. Appropriate arterial and venous spectral waveforms to the ovaries.
[2023-12-06] MEDS: SODIUM CHLORIDE 0.9% 1,000 ML IV ONE (20:12)
[2023-12-06 20:47] LABS: Appearance,Urine Cloudy (Clear); Color,Urine Red
[2023-12-06 20:48] LABS: Basophils # (A) 0.1 k/uL (0-0.2); Basophils % (A) 1 %; Eosinophils # (A) 0.1 k/uL (0-0.7); Eosinophils % (A) 3 %; HCT 34.7 % (34.0-46.0); HGB 11.1 gm/dL (11.4-16.0); Lymphocytes # (A) 1.7 k/uL (1.0-4.8); Lymphocytes % (A) 35 %; MCH 26.2 pg (25.0-35.0); MCV 81.9 fL (80.0-100.0); Mean Platelet Volume 8.5; Monocytes # (A) 0.4 k/uL (0-1.0); Monocytes % (A) 8 %; Neutrophils # (A) 2.4 k/uL (1.3-7.7); Neutrophils % (A) 51 %; Platelet Count 360 k/uL (150-450); RBC 4.23 m/uL (3.80-5.40); RDW 15.2 % (11.5-15.5); WBC 4.8 k/uL (3.8-10.6)
[2023-12-06 21:01] LABS: ALT 19 U/L (4-34); AST 29 U/L (14-36); African American GFR (CKD) >90 (>60 ml/min/1.73 sqM); Albumin 4.4 g/dL (3.5-5.0); Alkaline Phosphatase 50 U/L (38-126); Anion Gap 7 mmol/L; Blood Urea Nitrogen 9 mg/dL (7-17); Calcium 9.3 mg/dL (8.4-10.2); Carbon Dioxide 24 mmol/L (22-30); Chloride 106 mmol/L (98-107); Glucose 83 mg/dL (74-99); Non-African American GFR(CKD) >90 (>60 ml/min/1.73 sqM); Potassium 3.9 mmol/L (3.5-5.1); Sodium 137 mmol/L (137-145); Total Bilirubin 0.5 mg/dL (0.2-1.3); Total Protein 7.4 g/dL (6.3-8.2)
[2023-12-06 21:02] LABS: Mucus,Urine Many /hpf; RBC,Urine >182 /hpf (0-5); Squamous Epithelial Cell,Urine 6 /hpf (0-4); WBC,Urine 13 /hpf (0-5)
--- NOTE | 2023-12-06 21:27 | ED ---
Female Urogenital HPI - General Chief complaint: Vaginal Bleeding Stated complaint: abd pain/dizzy/vag bleeding Time Seen by Provider: 12/06/23 17:50 Source: patient Mode of arrival: ambulatory Limitations: no limitations - History of Present Illness Initial comments: 38-year-old female presents emergency department with heavy vaginal bleeding. Patient states that she has a history of fibroids. This is the time that she should be having her menstrual cycle. She reports that today she was out shopping when she had significant bleeding. States that she bled through a pad and a tampon. This prompted her to go home. States that she bled through 3 pads and tampons within a 3-hour.. She does have intense lower abdominal pain. She is currently not following with an CRM ANALYST but was told that she would have to have her uterus out. She denies any fevers. No abdominal trauma. No concern for . No other alleviating, precipitating or modifying factors - Related Data Previous Rx's Medication Instructions Recorded Aspirin 325 mg PO DAILY #30 tab 05/11/22 Clopidogrel [Plavix] 75 mg PO DAILY #30 tab 05/11/22 Cyclobenzaprine [Flexeril] 5 mg PO TID PRN 5 Days #15 tablet 12/15/22 norethindrone-e.estradioL-iron 1 tab PO DAILY #30 tab 12/06/23 [Nancy 24 Fe 1 mg-20 Mcg Tablet] Allergies Allergy/AdvReac Type Severity Reaction Status Date / Time corn Allergy Unknown Verified 12/06/23 17:51 Milk Containing Products Allergy Unknown Verified 12/06/23 17:51 (Dairy) [Dairy] Review of Systems ROS Statement: Those systems with pertinent positive or pertinent negative responses have been documented in the HPI. ROS Other: All systems not noted in ROS Statement are negative. Past Medical History Past Medical History: CVA/TIA Additional Past Medical History / Comment(s): vertigo History of Any Multi-Drug Resistant Organisms: None Reported Past Surgical History: Bariatric Surgery, Section, Tonsillectomy, Tubal Ligation Additional Past Surgical History / Comment(s): sleeve gastrectomy [address] [facility] [place] [facility] Past Anesthesia/Blood Transfusion Reactions: No Reported Reaction Past Psychological History: No Psychological Hx Reported Smoking Status: Never smoker Past Alcohol Use History: None Reported Past Drug Use History: None Reported General Exam Limitations: no limitations General appearance: alert, in no apparent distress Head exam: Present: atraumatic, normocephalic, normal inspection Eye exam: Present: normal appearance, PERRL, EOMI. Absent: scleral icterus, conjunctival injection, periorbital swelling ENT exam: Present: normal exam, mucous membranes moist Neck exam: Present: normal inspection. Absent: tenderness, meningismus, lymphadenopathy Respiratory exam: Present: normal lung sounds bilaterally. Absent: respiratory distress, wheezes, rales, rhonchi, stridor Cardiovascular Exam: Present: regular rate, normal rhythm, normal heart sounds. Absent: systolic murmur, diastolic murmur, rubs, gallop, clicks GI/Abdominal exam: Present: soft, normal bowel sounds. Absent: distended, tenderness, guarding, rebound, rigid Speculum exam: Present: vaginal bleeding (Mild). Absent: vaginal discharge Extremities exam: Present: normal inspection, full ROM, normal capillary refill. Absent: tenderness, pedal edema, joint swelling, calf tenderness Back exam: Present: normal inspection Neurological exam: Present: alert, oriented X3, CN II-XII intact Psychiatric exam: Present: normal affect, normal mood Skin exam: Present: warm, dry, intact, normal color. Absent: rash Course Vital Signs 12/06/23 12/06/23 17:49 21:50 Temperature 98.1 F 97.9 F Pulse Rate 72 76 Respiratory 20 17 Rate Blood Pressure 131/90 148/82 O2 Sat by Pulse 97 98 Oximetry Medical Decision Making - Medical Decision Making Was pt. sent in by a medical professional or institution (, PA, [employer], urgent care, hospital, or penitentiary...) When possible be specific @ -No Did you speak to anyone other than the patient for history (EMS, parent, family, police, friend...)? What history was obtained from this source @ -No Did you review nursing and triage notes (agree or disagree)? Why? @ -I reviewed and agree with nursing and triage notes Were old charts reviewed (outside hosp., previous admission, EMS record, old EKG, old radiological studies, urgent care reports/EKG's, penitentiary records)? Report findings @ -No old charts were reviewed Differential Diagnosis (chest pain, altered mental status, abdominal pain women, abdominal pain men, vaginal bleeding, weakness, fever, dyspnea, syncope, headache, dizziness, GI bleed, back pain, seizure, CVA, palpatations, mental health, musculoskeletal)? @ -Differential Abdominal Pain Women: Appendicitis, Cholecystitis, diverticulosis, ischemic bowel, pancreatitis, hepatitis, UTI, gastroenteritis, AAA, incarcerated hernia, bowel obstruction, constipation, inflammatory bowel, hepatitis, peptic ulcer disease, splenic infarction, perforated viscus, vulvitis, ovarian torsion, PID, kidney stone, placenta abruption, this is not meant to be an all-inclusive list EKG interpreted by me (3pts min.). @ -[Not done X-rays interpreted by me (1pt min.). @ -None done CT interpreted by me (1pt min.). @ -None done U/S interpreted by me (1pt. min.). @ -Yes and demonstrates uterine fibroids What testing was considered but not performed or refused? (CT, X-rays, U/S, labs)? Why? @ -None What meds were considered but not given or refused? Why? @ -None Did you discuss the management of the patient with other professionals (professionals i.e. , PA, [employer], lab, RT, psych nurse, social and political studies professor, sales representative rural power, teacher, airplane first officer, case operator)? Give summary @ -Spoke with on-call OB who does recommend a type of control to me Was smoking cessation discussed for >3mins.? @ -No Was critical care preformed (if so, how long)? @ -No Were there social determinants of health that impacted care today? How? (Homelessness, low income, unemployed, alcoholism, drug addiction, transportation, low edu. Level, literacy, decrease access to med. care, [facility], rehab)? @ -No Was there de-escalation of care discussed even if they declined (Discuss DNR or withdrawal of care, Hospice)? DNR status @ -No What co-morbidities impacted this encounter? (DM, HTN, Smoking, COPD, CAD, Cancer, CVA, ARF, Chemo, Hep., AIDS, mental health diagnosis, sleep apnea, morbid obesity)? @ -Fibroids Was patient admitted / discharged? Hospital course, mention meds given and route, prescriptions, significant lab abnormalities, going to OR and other pertinent info. @ -Upon arrival patient seen and evaluated in room 22. Thorough history and physical exam was performed. IV access was established laboratory studies are conducted. Ultrasound was performed. I did perform a pelvic exam. Patient does have some bleeding however there is no significant amount. I discussed results of the ultrasound and pelvic exam with the patient. Recommend that the patient's start control at this time and follow-up with CRM ANALYST. I did call and speak with Dr. Zabala for control recommendations. Patient will be discharged home at this time. Instructed to call make an appointment with OB. Return for any new or worsening symptoms. Patient agreeable to plan was discharged in stable condition Undiagnosed new problem with uncertain prognosis? @ -No Drug Therapy requiring intensive monitoring for toxicity (Heparin, Nitro, Insulin, Cardizem)? @ -No Were any procedures done? @ -No Diagnosis/symptom? @ -Acute dysfunctional uterine bleeding, fibroid uterus Acute, or Chronic, or Acute on Chronic? @ -Acute Uncomplicated (without systemic symptoms) or Complicated (systemic symptoms)? @ -Complicated Side effects of treatment? @ -No Exacerbation, Progression, or Severe Exacerbation? @ -No Poses a threat to life or bodily function? How? (Chest pain, [place], [place], pneumonia, PE, COPD, DKA, ARF, appy, cholecystitis, CVA, Diverticulitis, Homicidal, Suicidal, threat to staff... and all critical care pts) @ -No - Lab Data Result diagrams: 12/06/23 20:14 12/06/23 20:14 Lab Results 12/06/23 12/06/23 12/06/23 Range/Units 20:14 20:14 20:14 WBC 4.8 (3.8-10.6) k/uL RBC 4.23 (3.80-5.40) m/uL Hgb 11.1 L (11.4-16.0) gm/dL Hct 34.7 (34.0-46.0) % MCV 81.9 (80.0-100.0) fL MCH 26.2 (25.0-35.0) pg MCHC 32.0 (31.0-37.0) g/dL RDW 15.2 (11.5-15.5) % Plt Count 360 (150-450) k/uL MPV 8.5 Neutrophils % 51 % Lymphocytes % 35 % Monocytes % 8 % Eosinophils % 3 % Basophils % 1 % Neutrophils # 2.4 (1.3-7.7) k/uL Lymphocytes # 1.7 (1.0-4.8) k/uL Monocytes # 0.4 (0-1.0) k/uL Eosinophils # 0.1 (0-0.7) k/uL Basophils # 0.1 (0-0.2) k/uL Sodium (137-145) mmol/L Potassium (3.5-5.1) mmol/L Chloride (98-107) mmol/L Carbon Dioxide (22-30) mmol/L Anion Gap mmol/L BUN (7-17) mg/dL Creatinine (0.52-1.04) mg/dL Est GFR (CKD-EPI)AfAm (>60 ml/min/1.73 sqM) Est GFR (CKD-EPI)NonAf (>60 ml/min/1.73 sqM) Glucose (74-99) mg/dL Calcium (8.4-10.2) mg/dL Total Bilirubin (0.2-1.3) mg/dL AST (14-36) U/L ALT (4-34) U/L Alkaline Phosphatase (38-126) U/L Total Protein (6.3-8.2) g/dL Albumin (3.5-5.0) g/dL Urine Color Red Urine Appearance Cloudy H (Clear) Urine RBC >182 H (0-5) /hpf Urine WBC 13 H (0-5) /hpf Ur Squamous Epith Cells 6 H (0-4) /hpf Urine Mucus Many H (None) /hpf Urine HCG, Qual Not Detected (Not Detectd) 12/06/23 Range/Units 20:14 WBC (3.8-10.6) k/uL RBC (3.80-5.40) m/uL Hgb (11.4-16.0) gm/dL Hct (34.0-46.0) % MCV (80.0-100.0) fL MCH (25.0-35.0) pg MCHC (31.0-37.0) g/dL RDW (11.5-15.5) % Plt Count (150-450) k/uL MPV Neutrophils % % Lymphocytes % % Monocytes % % Eosinophils % % Basophils % % Neutrophils # (1.3-7.7) k/uL Lymphocytes # (1.0-4.8) k/uL Monocytes # (0-1.0) k/uL Eosinophils # (0-0.7) k/uL Basophils # (0-0.2) k/uL Sodium 137 (137-145) mmol/L Potassium 3.9 (3.5-5.1) mmol/L Chloride 106 (98-107) mmol/L Carbon Dioxide 24 (22-30) mmol/L Anion Gap 7 mmol/L BUN 9 (7-17) mg/dL Creatinine 0.62 (0.52-1.04) mg/dL Est GFR (CKD-EPI)AfAm >90 (>60 ml/min/1.73 sqM) Est GFR (CKD-EPI)NonAf >90 (>60 ml/min/1.73 sqM) Glucose 83 (74-99) mg/dL Calcium 9.3 (8.4-10.2) mg/dL Total Bilirubin 0.5 (0.2-1.3) mg/dL AST 29 (14-36) U/L ALT 19 (4-34) U/L Alkaline Phosphatase 50 (38-126) U/L Total Protein 7.4 (6.3-8.2) g/dL Albumin 4.4 (3.5-5.0) g/dL Urine Color Urine Appearance (Clear) Urine RBC (0-5) /hpf Urine WBC (0-5) /hpf Ur Squamous Epith Cells (0-4) /hpf Urine Mucus (None) /hpf Urine HCG, Qual (Not Detectd) Disposition Clinical Impression: Vaginal bleeding, Uterine fibroid Disposition: HOME SELF-CARE Condition: Stable Instructions (If sedation given, give patient instructions): Abnormal (Dysfunctional) Uterine Bleeding (ED) Additional Instructions: Please take the medication as directed. Follow-up with one of the recommended CRM ANALYST's and return for any new or worsening symptoms Prescriptions: norethindrone-e.estradioL-iron [Nancy 24 Fe 1 mg-20 Mcg Tablet] 1 tab PO DAILY # 30 tab Is patient prescribed a controlled substance at d/c from ED?: No Referrals: Zev Ramirez MD [Primary Care Provider] - 1-2 days Cecilia Zabala DO [Doctor of Osteopathic Medicine] - 1-2 days Raissa Mao DO [Doctor of Osteopathic Medicine] - 1-2 days Adore Gottlieb DO [REFERRING] - 1-2 days Lacey Darby MD [REFERRING] - 1-2 days Bandar Malone DO [REFERRING] - 1-2 days Forms: Work/School Release Time of Disposition: 21:28
[2023-12-06 21:59] VITALS: BP 148/82; PULSE 76; RESP 17; TEMP 97.9
== END 2023-12-06 22:15 | disposition home or self-care (01) ==
LOC: EC 17:40
DX: D25.9 Leiomyoma of uterus, unspecified (principal); Z86.73 Personal history of transient ischemic attack (TIA), and cerebral infarction without residual deficits
CPT/HCPCS: 36415; 76830; 80053; 81001; 81025; 85025; 93975; 96360; 96361; 99284

== ENCOUNTER → 2024-02-13 | Outpatient (CLI) | payer OTHER ==
--- NOTE | 2024-02-14 00:33 | US ---
EXAMINATION TYPE: US thyroid st tissue head/neck DATE OF EXAM: 02/13/2024 COMPARISON: NONE CLINICAL INDICATION: Female, 38 years old with history of R94.6 ABN THYROID LABS R63.5 WEIGHT GAIN; GLAND SIZE: Right Lobe: 5.2 x 1.7 x 1.9 cm Overall Parenchyma: heterogeneous Left Lobe: 5.3 x 1.6 x 1.7 cm Overall Parenchyma: heterogeneous Isthmus Thickness: 0.4 cm NODULES RIGHT: # of nodules measured on right: 0 LEFT: # of nodules measured on left: 1 1. 1.5 X 0.9 x 1.5 cm, lower mid, solid or almost completely solid, hypoechoic nodule, which is wid er than tall, with ill-defined margins, without echogenic foci. TR 4 Prior size: no previous ?? nodule within thyroid vs. inferior to thyroid ISTHMUS: # of nodules measured in the isthmus: 0 Bilateral neck scanned, no evidence of lymphadenopathy. IMPRESSION: 1. Moderately suspicious nodule left lobe thyroid. Fine-needle aspiration can be performed 2017 ACR TI-RADS LEVEL: TR-RADS 4 - Moderately Suspicious: Follow if > 1 cm, FNA if > 1.5 cm *Highest TI-RADS level nodule reported [facility], , 02/14/2024 12:30 AM
== END | disposition home or self-care (01) ==
LOC: RADUSWWP 12:57
PROVIDERS: ATTEND Family Medicine
DX: R94.6 Abnormal results of thyroid function studies (principal); R63.5 Abnormal weight gain
CPT/HCPCS: 76536

== ENCOUNTER 2024-03-01 08:18 | Day surgery (SDC) | payer OTHER ==
[2024-03-01 08:51] VITALS: RESP 16; TEMP 98.1
[2024-03-01 10:24] VITALS: BP 121/85; PULSE 65
--- NOTE | 2024-03-01 15:08 | US ---
EXAMINATION TYPE: US FNA thyroid first lesion DATE OF EXAM: 03/01/2024 12:32 PM REASON FOR EXAM: 38-year-old female E04.1 NONTOXIC SINGLE THYROID NODULE, referred for FNA left thyr oid lobe RADIOLOGIST: Dr. Sommers PROCEDURE: * Initial scanning shows the 1.5 cm TR4 hypoechoic solid nodule at the left lower pole. This is targeted for FNA. The procedure, along with the risks and complications were discussed with the patient. Patient agreed to proceed with the procedure. A consent was signed and placed in patient's chart. Maximum sterile barrier technique was utilized. Timeout was performed by myself. The left side of the neck was sterilely prepped and draped in the usual fashion. 5 milliliters of 1% Lidocaine were utili zed to anesthetize the superficial and deep soft tissues at each nodule in turn. Following that, under ultrasound guidance, 5 passes were made into the nodule with 5 cc syringe sucti on. After each pass, the sample was placed on a slide and then sent for pathology. Upon conclusion, hemostasis was achieved, and patient was discharged home in satisfactory condition. IMPRESSION: Successful FNA of the 1.5 cm TR4 nodule left lower pole. Pathology pending. [facility], , 03/01/2024 3:05 PM
== END 2024-03-01 10:18 | disposition home or self-care (01) ==
LOC: RADPROMAIN 08:18
PROVIDERS: ATTEND Family Medicine
DX: E04.1 Nontoxic single thyroid nodule (principal)
CPT/HCPCS: 10005; 88173; 88305

== ENCOUNTER → 2024-04-03 | Outpatient (CLI) | payer MEDICARE, OTHER ==
--- NOTE | 2024-04-03 13:39 | US ---
EXAMINATION TYPE: US kidneys/renal and bladder DATE OF EXAM: 04/03/2024 COMPARISON: CT CLINICAL INDICATION: Female, 39 years old with history of N200 KIDNEY STONES; Pt states h/o kidney st ones, generalized ABD pain TECHNIQUE: Grayscale imaging of the bilateral kidneys and urinary bladder: FINDINGS: EXAM MEASUREMENTS: Right Kidney: 11.0 x 4.8 x 4.8 cm Left Kidney: 11.9 x 5.3 x 5.5 cm Right Kidney: No evidence of hydro, no evidence of renal calculi, lower pole gassed out Left Kidney: No evidence of hydro, no evidence of renal calculi Bladder: wnl Bilateral Jets seen: No There is no evidence for hydronephrosis at this point in time. No nephrolithiasis is seen. No mika s are identified. The urinary bladder is anechoic. IMPRESSION: No evidence for obstructive uropathy. No renal calculi definitively visualized. [facility], , 04/03/2024 1:36 PM
--- NOTE | 2024-04-03 13:44 | US ---
EXAMINATION TYPE: US pelvis complete transvag DATE OF EXAM: 04/03/2024 COMPARISON: CT & US CLINICAL INDICATION: Female, 39 years old with history of R102 , N20 PELVIC PAIN; Pain, pt states h/o fibroid and ovarian cysts TECHNIQUE: Transvaginal (TV) and Transabdominal (TA) . Transabdominal grayscale sonographic images of the pelvis were acquired. Transvaginal sonographic im ages were medically necessary to better assess the following anatomy: Entire pelvis Doppler imaging: Not performed. FINDINGS: Date of LMP: 4 days ago EXAM MEASUREMENTS: Uterus: 10.4 x 4.3 x 4.9 cm Endometrial Stripe: 0.5 cm Right Ovary: 2.9 x 1.6 x 1.5 cm Left Ovary: 2.8 x 2.2 x 2.4 cm 1. Uterus: Anteverted Probable small anterior right uterine body= 1.6 x 1.5 x 1.7 cm, prior size= 1.5 x 1.5 x 1.3 cm 2. Endometrium: wnl 3. Right Ovary: wnl 4. Left Ovary: wnl 5. Bilateral Adnexa: wnl 6. Posterior cul-de-sac: wnl IMPRESSION: 1. No evidence of acute process. 2. Fibroid uterus. 3. Endometrium within normal limits for thickness. [facility], , 04/03/2024 1:41 PM
== END | disposition home or self-care (01) ==
LOC: RADUSWWP 12:32
PROVIDERS: ATTEND Family Medicine
DX: N20.0 Calculus of kidney (principal); D25.9 Leiomyoma of uterus, unspecified; Z86.018 Personal history of other benign neoplasm
CPT/HCPCS: 76770; 76830; 76856

== ENCOUNTER 2024-04-17 11:03 | Emergency (ER) | payer MEDICARE, OTHER ==
[2024-04-17 11:21] VITALS: RESP 18
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
[2024-04-17 12:13] VITALS: BP 124/84; PULSE 84; TEMP 98.8
== END 2024-04-17 12:07 | disposition home or self-care (01) ==
LOC: EC 11:03
DX: S06.0XAA Concussion with loss of consciousness status unknown, initial encounter (principal); V89.2XXA Person injured in unspecified motor-vehicle accident, traffic, initial encounter; Y93.9 Activity, unspecified
CPT/HCPCS: 70450; 99284